=== PATIENT | male | born 1980 | race Caucasian/White ===

== ENCOUNTER 2017-09-18 14:49 | Emergency (ER) | payer SELFPAY ==
[~2017-09-18] VITALS: Ht 182.9 cm; Wt 68.0 kg
[2017-09-18 14:50] VITALS: BP 80/60
--- NOTE | 2017-09-18 15:09 | PHYS DOC ---
Past Medical History Past Medical History: No Pertinent History Past Surgical History: No Surgical History, Other Additional Past Surgical Histo: nasal fracture repair Smoking: Cigarettes Alcohol Use: Occasionally Drug Use: Marijuana Adult General Chief Complaint Chief Complaint: DIZZY/LIGHT HEADED [facility] HPI Patient is a pleasant 36-year-old male with no major medical problems no major surgeries who presents with dizziness began while exerting himself at the gym working out. He was working out strenuously when he began to feel lightheaded and dizzy. He denies any chest pain or abdominal pain or headache or focal neurologic deficits with the symptoms. He sat down and attempt to relax but his breathing was too fast and it causes dizziness to be little bit worse. EMS was dispatched to the scene and because he was still symptomatic they transported here for an evaluation. At this point after receiving 500 mL of fluid via his IV in his left arm he feels markedly better although he's got mild dizziness still. Patient denies any chest pain at this time abdominal pain, focal neurologic deficit, trauma, decreased exercise tolerance or shortness of breath with exertion. He's not had any symptoms like this in the past and he admits that he was not eating well prior to his workup. At this point patient has minimal symptoms My syncope differential includes but not limited to: Neurally mediated vasovagal syncope, situational syncope, cardiac sinus syncope , orthostatic hypertension, medications, psychiatric interventions, neurologic syncope, cardiogenic syncopal B, to include organic heart disease congestive heart failure, cardiac dysrhythmia, seizure disorder, stroke or transient ischemic attack, bradycardia dysrhythmias, tachycardia dysrhythmias, PT, V. fib V. fib, cardiac abnormalities like first degree secondary third-degree AV blocks , prolonged QT, hypertrophic Dex myopathy, severe pulmonic stenosis, pulmonary arterial hypertension, atrial myxomas, aortic stenosis, valvular failure, alcohol consumption, adrenal insufficiency, drug effects from things like antidepressants, antihypertensive agents like beta blockers, vasodilators including calcium channel blockers and nitrates, autonomic insufficiency. Review of Systems Review of Systems Constitutional: Denies fever or chills [] Eyes: Denies change in visual acuity, redness, or eye pain [] HENT: Denies nasal congestion or sore throat [] Respiratory: Denies cough or shortness of breath [] Cardiovascular: No additional information not addressed in HPI [] GI: Denies abdominal vomiting bloody stools or diarrhea patient admits to being very nauseated. : Denies dysuria or hematuria [] Musculoskeletal: Denies back pain or joint pain [] Integument: Denies rash or skin lesions [] Neurologic: Denies headache, focal weakness or sensory changes patient has some dizziness is now resolving. Endocrine: Denies polyuria or polydipsia [] Current Medications Current Medications Current Medications Medications (Trade) Dose Ordered Sig/Nicole Start Time Stop Time Status Last Admin Dose Admin Ondansetron HCl (Zofran) 4 mg 1X ONCE 09/18/17 15:15 09/18/17 15:16 DC 09/18/17 15:21 4 MG Sodium Chloride 1,000 ml @ 1,000 mls/hr 1X ONCE 09/18/17 15:15 09/18/17 16:14 09/18/17 15:21 1,000 MLS/HR Allergies Allergies Allergies Coded Allergies Type Severity Reaction Last Updated Verified No Known Drug Allergies 11/29/14 No Physical Exam Physical Exam Vital signs recorded on the chart within normal limits. Constitutional: Well developed, well nourished, no acute distress, non-toxic appearance. [] HENT: Normocephalic, atraumatic, bilateral external ears normal, dry mucous membranes with no tonsillar hypertrophy, no oral exudates, nose normal. [] Eyes: PERRLA, EOMI, conjunctiva normal, no discharge. No nystagmus with lateral gaze.[] Neck: Normal range of motion, no tenderness, supple, no stridor. [] Cardiovascular:Heart rate regular rhythm, no murmur [] Lungs & Thorax: Bilateral breath sounds clear to auscultation [] Abdomen: Bowel sounds normal, soft, no tenderness, no guarding rebound organomegaly. [] Skin: Warm, dry, no erythema, no rash. [] Extremities: No tenderness, no cyanosis, no clubbing, ROM intact, no edema. [] Neurologic: Alert and oriented X 3, normal motor function, normal sensory function, no focal deficits noted. Patient was also be spontaneously with normal strength. [] Psychologic: Affect normal, judgement normal, mood normal. [] Current Patient Data Vital Signs Vital Signs Date Time Temp Pulse Resp B/P (MAP) Pulse Ox O2 Delivery O2 Flow Rate FiO2 09/18/17 14:50 97.6 80 18 80/60 (67) 96 Room Air 97.6 Lab Values Laboratory Tests Test 09/18/17 15:10 Glucose (Fingerstick) 95 mg/dL (70-99) EKG EKG []EKG timed [address] Abel 09/18/2017 demonstrates heart rate of 65. A P wave there were QRS is noted normal sinus rhythm OR interval is 144 which is normal, QRS interval was 88 which is normal QTC is 392 which is normal patient has no ST segment or T-wave changes consistent with acute coronary ischemia. This normal EKG Radiology/Procedures Radiology/Procedures [] Course & Med Decision Making Course & Med Decision Making Pertinent Labs and Imaging studies reviewed. (See chart for details) []Patient presents with exertional near syncope patient feels markedly better after a liter Of fluids. Patient states it was normal, EKG is normal, patient's neuro exam is normal with no evidence of nystagmus no headache no points of weakness. Bleeding at the bedside upon arrival demonstrates no occult this. Stroke scale of 0 1a. Level of consciousness: 0 = Alert; keenly responsive. 1 = Not alert; but arousable by minor stimulation to obey, answer, or respond. 2 = Not alert; requires repeated stimulation to attend, or is obtunded and requires strong or painful stimulation to make movements (not stereotyped). 3 = Responds only with reflex motor or autonomic effects or totally unresponsive , flaccid, and areflexic. 1b. LOC questions: 0 = Answers both questions correctly. 1 = Answers one question correctly. 2 = Answers neither question correctly. 1c. LOC commands: 0 = Performs both tasks correctly. 1 = Performs one task correctly. 2 = Performs neither task correctly. 2. Best gaze: 0 = Normal. 1 = Partial gaze palsy; gaze is abnormal in one or both eyes, but forced deviation or total gaze paresis is not present. 2 = Forced deviation, or total gaze paresis not overcome by the oculocephalic maneuver. 3. Visual: 0 = No visual loss. 1 = Partial hemianopia. 2 = Complete hemianopia. 3 = Bilateral hemianopia (blind including cortical blindness). 4. Facial palsy: 0 = Normal symmetrical movements. 1 = Minor paralysis (flattened nasolabial fold, asymmetry on smiling). 2 = Partial paralysis (total or near-total paralysis of lower face). 3 = Complete paralysis of one or both sides (absence of facial movement in the upper and lower face). 5. Motor arm: 0 = No drift; limb holds 90 (or 45) degrees for full 10 seconds. 1 = Drift; limb holds 90 (or 45) degrees, but drifts down before full 10 seconds ; does not hit bed or other support. 2 = Some effort against gravity; limb cannot get to or maintain (if cued) 90 ( or 45) degrees, drifts down to bed, but has some effort against gravity. 3 = No effort against gravity; limb falls. 4 = No movement. UN = Amputation or joint fusion, explain: 5a. Left arm 5b. Right arm 6. Motor le = No drift; leg holds 30-degree position for full 5 seconds. 1 = Drift; leg falls by the end of the 5-second period but does not hit bed. 2 = Some effort against gravity; leg falls to bed by 5 seconds, but has some effort against gravity. 3 = No effort against gravity; leg falls to bed immediately. 4 = No movement. UN = Amputation or joint fusion, explain: 6a. Left leg 6b. Right leg 7. Limb ataxia: 0 = Absent. 1 = Present in one limb. 2 = Present in two limbs. UN = Amputation or joint fusion 8. Sensory: 0 = Normal; no sensory loss. 1 = Ajrt-al-uraswjol sensory loss; patient feels pinprick is less sharp or is dull on the affected side; or there is a loss of superficial pain with pinprick , but patient is aware of being touched. 2 = Severe to total sensory loss; patient is not aware of being touched in the face, arm, and leg. 9. Best language: 0 = No aphasia; normal. 1 = Lnmf-kr-tsqtvdms aphasia; some obvious loss of fluency or facility of comprehension, without significant limitation on ideas expressed or form of expression. Reduction of speech and/or comprehension, however, makes conversation about provided materials difficult or impossible. For example, in conversation about provided materials, examiner can identify picture or naming card content from patient's response. 2 = Severe aphasia; all communication is through fragmentary expression; great need for inference, questioning, and guessing by the listener. Range of information that can be exchanged is limited; listener carries burden of communication. Examiner cannot identify materials provided from patient response. 3 = Mute, global aphasia; no usable speech or auditory comprehension. 10. Dysarthria: 0 = Normal. 1 = Ewla-gq-glzlhauh dysarthria; patient slurs at least some words and, at worst , can be understood with some difficulty. 2 = Severe dysarthria; patient's speech is so slurred as to be unintelligible in the absence of or out of proportion to any dysphasia, or is mute/anarthric. UN = Intubated or other physical barrier, explain: 11. Extinction and inattention (formerly neglect): 0 = No abnormality. 1 = Visual, tactile, auditory, spatial, or personal inattention or extinction to bilateral simultaneous stimulation in one of the sensory modalities. 2 = Profound phuong-inattention or extinction to more than one modality; does not recognize own hand or orients to only one side of space. Impression: Near syncope likely dehydration and environmental exposure Dragon Disclaimer Dragon Disclaimer This electronic medical record was generated, in whole or in part, using a voice recognition dictation system. Departure Departure Impression: Primary Impression: Near syncope Additional Impression: Nausea Disposition: 01 HOME, SELF-CARE Condition: IMPROVED Referrals: NO PCP (PCP) Patient Instructions: Nausea, Adult, Near-Syncope Additional Instructions: My discharge plan Follow up: In addition patient is asked to followup with their primary doctor, within a week for followup examination and to address patient's ongoing medical conditions. Because patient does not have a regular medical doctor, a local physician Resource Sheet will be provided to establish care primary care. Please be very careful when using sedating medications to not operate a vehicle when using his medications as they may prevent increased risk for having a neck.. Patient is advised that in the Emergency Department primary complaints are addressed and only in light of known signs and symptoms. Patient should return immediately to the emergency department if new signs and symptoms develop or patient's condition worsens in any way. At time of discharge patient was in stable condition and had verbalized understanding of the discharge instructions. Scripts Ondansetron (ZOFRAN ODT) 4 Mg Tab.rapdis 4 MG PO BID Y for NAUSEA/VOMITING for 5 Days, #10 TAB Prov: GAGE ABEL MD 09/18/17 Problem Qualifiers GAGE ABEL MD Sep 18, 2017 15:09
[2017-09-18] MEDS ORDERED: ONDANSETRON PF 4 MG/2 ML VIAL. IV ONE (15:15)
[2017-09-18] MEDS ORDERED: IV NORMAL SALINE 1000ML BAG 1,000 ML IV ONE (15:15)
[2017-09-18] MEDS ORDERED: ONDA4TAB10 PO (15:38)
--- NOTE | 2017-09-19 06:36 | EKG ---
[facility] [address] [place] [address] Test Date: 2017-09-18 Test Time: 15:18:29 Pat Name: CLAUDIO SAMUEL Department: Room: Gender: M Documentation Designer: : 1980 Requested By: GAGE ABEL Order Number: [id number] Reading MD: Measurements Intervals [place] Rate: 65 P: 39 CT: 144 QRS: 59 QRSD: 88 T: 45 QT: 372 QTc: 392 Interpretive Statements SINUS RHYTHM RI6.01 Unconfirmed report No previous ECG available for comparison
== END 2017-09-18 16:01 | disposition home or self-care (01) ==
LOC: ER 14:49
DX: R55 Syncope and collapse (principal); R11.0 Nausea; F17.210 Nicotine dependence, cigarettes, uncomplicated
CPT/HCPCS: 82962; 93005; 96361; 96374; 99285; J2405; J7030

== ENCOUNTER 2020-01-08 07:52 | Emergency (ER) | payer SELFPAY ==
[~2020-01-08] VITALS: Ht 182.9 cm; Wt 64.4 kg
[~2020-01-08 07:52] MED LIST: ONDA4TAB10 PO
[2020-01-08 07:56] VITALS: BP 123/69
[2020-01-08] MEDS ORDERED: IBUP-1060 PO (08:05)
[2020-01-08] MEDS ORDERED: AMOX1TAB61 PO (08:05)
--- NOTE | 2020-01-08 08:06 | PHYS DOC ---
Past Medical History Past Medical History: No Pertinent History Past Surgical History: No Surgical History, Other Additional Past Surgical Histo: nasal fracture repair Smoking Status: Never Smoker Alcohol Use: None Drug Use: None Adult General Chief Complaint Chief Complaint: ANIMAL BITE HPI HPI Patient is a 39 year old L who presented to ER today for evaluation of a dog bite her head left thumb that happened on Friday morning which is 4 days ago. He said he was playing with his girlfriend's dog, the dog turned around bit his left thumb. The dog was not sick, acting appropriately, vaccination is up-to-date. He cleaned the wound and has been working since. He woke up with morning with worse pain at the bite site, no fever. He was able to move his left thumb with pain. He is not up to date on his vaccination status. All other ROS is negative unless otherwise noted in HPI Review of Systems Review of Systems See above Current Medications Current Medications Current Medications Medications (Trade) Dose Ordered Sig/Nicole Start Time Stop Time Status Last Admin Dose Admin Amoxicillin/ Clavulanate Potassium (Augmentin 875/ 125mg) 1 tab 1X ONCE 01/08/20 08:15 01/08/20 08:16 DC 01/08/20 08:27 1 TAB Diphtheria/ Tetanus/Acell Pertussis (Boostrix) 0.5 ml ONCE ONCE 01/08/20 08:30 01/08/20 08:31 DC 01/08/20 08:28 0.5 ML Ibuprofen (Motrin) 800 mg 1X ONCE 01/08/20 08:15 01/08/20 08:16 DC 01/08/20 08:27 800 MG Allergies Allergies Allergies Coded Allergies Type Severity Reaction Last Updated Verified No Known Drug Allergies 11/29/14 No Physical Exam Physical Exam See above Constitutional: Well developed, well nourished, no acute distress, non-toxic appearance. [] HENT: Normocephalic, atraumatic, bilateral external ears normal, oropharynx moist, no oral exudates, nose normal. [] Eyes: PERRLA, EOMI, conjunctiva normal, no discharge. [] Neck: Normal range of motion, no tenderness, supple, no stridor. [] Cardiovascular:Heart rate regular rhythm, no murmur [] Lungs & Thorax: Bilateral breath sounds clear to auscultation [] Abdomen: Bowel sounds normal, soft, no tenderness, no masses, no pulsatile masses. [] Skin: There is a puncture wound on the medial side of left thumb at the proximal phalanx area, minimal swelling, no erythema spreading to the wrist area. Patient can flex and extend his left thumb without any problem. Back: No tenderness, no CVA tenderness. [] Extremities: No tenderness, no cyanosis, no clubbing, ROM intact, no edema. [] Neurologic: Alert and oriented X 3, normal motor function, normal sensory function, no focal deficits noted. [] Psychologic: Affect normal, judgement normal, mood normal. [] Current Patient Data Vital Signs Vital Signs Date Time Temp Pulse Resp B/P (MAP) Pulse Ox O2 Delivery O2 Flow Rate FiO2 01/08/20 07:56 97.5 86 15 123/69 (87) 99 Room Air 97.5 EKG EKG [] Radiology/Procedures Radiology/Procedures [] Course & Med Decision Making Course & Med Decision Making Pertinent Labs and Imaging studies reviewed. (See chart for details) Patient was given tetanus booster in the ER. He was given his first dose of antibiotic in the ER. Animal control was notified. His girlfriend's dog will be observed. He does not need RABIES VACCINE AT THIS TIME DUE TO LOW RISK OF KRISTY INFECTION. THE DOG IS UP TO DATE ON VACCINATION STATUS. AT THIS TIME, THERE IS NO EVIDENCE OF FLEXOR TENDON TENOSYNOVITIS. PATIENT CAN FLEX AND EXTEND LEFT THUMB, VERY MINIMAL SWELLING, MILD ERYTHEMA. Dragon Disclaimer Dragon Disclaimer This electronic medical record was generated, in whole or in part, using a voice recognition dictation system. Departure Departure Impression: Primary Impression: Dog bite of left thumb Disposition: 01 HOME, SELF-CARE Condition: STABLE Referrals: NO PCP (PCP) follow up with y our doctor in 2 days for reevaluation. Patient Instructions: Animal Bite Additional Instructions: Thank you for visiting our Emergency Department. We appreciate you trusting us with your care. If any additional problems come up don't hesitate to return to visit us. Please follow up with your primary care provider so they can plan additional care if needed and know about the problem that you had. If symptoms worsen come back to the Emergency Department. Any concerning symptoms that start such as chest pain, shortness of air, weakness or numbness on one side of the body, running high fevers or any other concerning symptoms return to the ER. Scripts Ibuprofen (IBUPROFEN) 800 Mg Tablet 800 MG PO PRN Q8HRS PRN for PAIN, #20 TAB Prov: SANDIE ALAN DO 01/08/20 Amoxicillin/Potassium Clav (AUGMENTIN 875-125 TABLET) 1 Each Tablet 1 TAB PO BID for 10 Days, #20 TAB 0 Refills Prov: SANDIE ALAN DO 01/08/20 SANDIE ALAN DO Jan 08, 2020 08:06
[2020-01-08] MEDS ORDERED: AMOXICILLIN/K CLAV 875/125MG TABLET. PO ONE (08:15)
[2020-01-08] MEDS ORDERED: IBUPROFEN 400 MG TABLET. PO ONE (08:15)
[2020-01-08] MEDS ORDERED: DIPHTH,PERTUSS(ACELL),TET TOX 0.5 ML DISP.SYRIN. VAX IM ONE (08:30)
== END 2020-01-08 08:39 | disposition home or self-care (01) ==
LOC: ER 07:52
DX: S61.052A Open bite of left thumb without damage to nail, initial encounter (principal); R60.0 Localized edema; Z98.890 Other specified postprocedural states; W54.0XXA Bitten by dog, initial encounter; Y93.89 Activity, other specified; Y92.89 Other specified places as the place of occurrence of the external cause; Y99.8 Other external cause status
CPT/HCPCS: 90471; 90715; 99283

== ENCOUNTER 2021-06-20 11:22 | Emergency (ER) | payer SELFPAY ==
[~2021-06-20] VITALS: Ht 182.9 cm; Wt 70.0 kg
[~2021-06-20 11:22] MED LIST changes: +AMOX1TAB61 PO; +IBUP-1060 PO
[2021-06-20] MEDS ORDERED: IOHEXOL 300 MG/ML 100ML VIAL. IV ONE (13:45)
[2021-06-20] MEDS ORDERED: CONTRAST GIVEN. MC PRN (14:00)
[2021-06-20 14:13] LABS: CREATININE 1.3 mg/dL (0.7-1.3); GFR 60.8
[2021-06-20] MEDS ORDERED: AMOX1TAB61 PO (15:05)
--- NOTE | 2021-06-20 15:06 | PHYS DOC ---
Past Medical History Past Medical History: No Pertinent History Past Surgical History: Other Additional Past Surgical Histo: Rhinoplasty Smoking Status: Former Smoker Alcohol Use: Occasionally Drug Use: None General Adult EDM: Chief Complaint: FACE PROBLEM HPI: HPI: Patient is a 40 year old male without pertinent past medical history who presents with intermittent left-sided facial swelling. Has some swelling over his maxilla on the left that has been waxing and waning over the past 3 weeks. He has not found any triggering factors. He is not any fevers, chills, redness in that area. No pain in his mouth or oral cavity. No difficulty secretions, oral swelling, stridor, or shortness of breath. He is otherwise been feeling well. He does not have a PCP, has not sought medical care for this yet. Review of Systems: Review of Systems: Constitutional: Denies fever or chills. [] Eyes: Denies change in visual acuity. [] HENT: + Left-sided facial swelling . [] Respiratory: Denies cough or shortness of breath. [] Cardiovascular: Denies chest pain or edema. [] GI: Denies abdominal pain, nausea, vomiting, bloody stools or diarrhea. [] : Denies dysuria. [] Musculoskeletal: Denies back pain or joint pain. [] Integument: Denies rash. [] Neurologic: Denies headache, focal weakness or sensory changes. [] Endocrine: Denies polyuria or polydipsia. [] Lymphatic: Denies swollen glands. [] Psychiatric: Denies depression or anxiety. [] Heart Score: C/O Chest Pain: N/A Risk Factors: Risk Factors: DM, Current or recent (<one month) smoker, HTN, HLP, family history of CAD, obesity. Risk Scores: Score 0 - 3: 2.5% MACE over next 6 weeks - Discharge Home Score 4 - 6: 20.3% MACE over next 6 weeks - Admit for Clinical Observation Score 7 - 10: 72.7% MACE over next 6 weeks - Early Invasive Strategies Family History: Family History: No family history of angioedema Current Medications: Current Medications Medications (Trade) Dose Ordered Sig/Nicole Start Time Stop Time Status Last Admin Dose Admin Info (CONTRAST GIVEN -- Rx MONITORING) 1 each PRN DAILY PRN 06/20/21 14:00 06/22/21 13:59 Iohexol (Omnipaque 300 Mg/ml) 70 ml 1X ONCE 06/20/21 13:45 06/20/21 13:46 DC 06/20/21 13:45 70 ML Allergies: Allergies: Allergies Coded Allergies Type Severity Reaction Last Updated Verified No Known Drug Allergies 11/29/14 No Physical Exam: PE: Constitutional: Well developed, well nourished, no acute distress, non-toxic appearance. [] HENT: Normocephalic, atraumatic, bilateral external ears normal, oropharynx mo ist, no oral exudates, nose normal. [] Eyes: PERRLA, EOMI, conjunctiva normal, no discharge. [] Neck: Normal range of motion, no tenderness, supple, no stridor. [] Cardiovascular:Heart rate regular rhythm, no murmur [] Lungs & Thorax: Bilateral breath sounds clear to auscultation [] Abdomen: Bowel sounds normal, soft, no tenderness, no masses, no pulsatile masses. [] Skin: Warm, dry, no erythema, no rash. [] Back: No tenderness, no CVA tenderness. [] Extremities: No tenderness, no cyanosis, no clubbing, ROM intact, no edema. [] Neurologic: Alert and oriented X 3, normal motor function, normal sensory function, no focal deficits noted. [] Psychologic: Affect normal, judgement normal, mood normal. [] Current Patient Data: Labs: Laboratory Tests Test 06/20/21 13:00 Creatinine 1.3 mg/dL (0.7-1.3) Estimated GFR (Cockcroft-Gault) 60.8 Creatine Kinase 81 U/L (39-308) Laboratory Tests 06/20/21 13:00 Vital Signs: Vital Signs Date Time Temp Pulse Resp B/P (MAP) Pulse Ox O2 Delivery O2 Flow Rate FiO2 06/20/21 11:38 98.1 82 16 137/80 (87) 98 Room Air 98.1 EKG: EKG: [] Radiology/Procedures: Radiology/Procedures: CT Facial bones[] Course & Med Decision Making: Course & Med Decision Making Pertinent Labs and Imaging studies reviewed. (See chart for details) Patient is a 40-year-old male without pertinent past medical history who presents with 3 weeks of waxing and waning left-sided facial swelling. It overlies his maxilla and goes to his left lower eyelid. There is no erythema, and it is not painful or tender. He has had no fevers or chills or infectious symptoms. He has had some bloody nasal drainage from the left nare. No recent trauma. Does report that he broke his nose a number years ago. He had all of his top teeth pulled and has dentures in that area. He is not had any pain or swelling in his mouth to suggest an oral infection. CT facial bones obtained and did not show any discernible abscess. Just edema in the area as described above. Patient does not have any PCP follow-up, so have given him a list of providers to establish with. I will trial him on a short course of antibiotics to see if this improves his symptoms. Will return for worsening symptoms including oral swelling, shortness of breath. Dragon Disclaimer: Rajiv Disclaimer: This electronic medical record was generated, in whole or in part, using a voice recognition dictation system. Departure Departure Impression: Primary Impression: Facial swelling Disposition: HOME / SELF CARE / HOMELESS Condition: STABLE Referrals: NO PCP (PCP) Since you do not have a PCP, please call the number for the [facility] at [phone]. Additional Instructions: There was some swelling in the soft tissues on your face. There is no drainable abscesses found. I would like you to follow-up with a primary care doctor so please call them up to set up an appointment. I will write you a prescription for 7 days of Augmentin. Please take the entire prescription as prescribed. If you have worsening of your swelling, swelling in your mouth, shortness of breath, fevers/chills, or other new/concerning symptoms please return to the emergency department for reevaluation immediately. Scripts Amoxicillin/Potassium Clav (AUGMENTIN 875-125 TABLET) 1 Each Tablet 1 TAB PO BID for 7 Days, #14 TAB 0 Refills Prov: DENZEL RICO MD 06/20/21 DENZEL RICO MD Jun 20, 2021 15:06
--- NOTE | 2021-06-20 15:17 | RAD ---
PQRS Compliance Statement: One or more of the following individualized dose reduction techniques were utilized for this examinat ion: 1. Automated exposure control 2. Adjustment of the mA and/or kV according to patient size 3. Use of iterative reconstruction technique CT MAXILLOFACIAL WITH IV CONTRAST 06/20/2021 2:22 PM Indication: Swelling over the maxilla. Bloody maxillary drainage. COMPARISON: None available. TECHNIQUE: Multiple axial CT images of the maxillofacial structures were obtained after the intraveno us administration of nonionic contrast. Coronal and sagittal reformats are provided. FINDINGS: Osseous orbits are intact. Globes are spherical and contour. No intraconal or extraconal mass is iden tified. There is subcutaneous edema along the inferior left periorbital region extending along the le ft malar soft tissues to involve the left nasolabial crease and upper lip. There is subcutaneous florence a extending along the left nare. No osseous erosion is identified. Chronic appearing minimally displa flako fracture of the right nasal bone. Nasal septum appears predominantly midline. Mild fragmentation of the anterior nasal spine may be chronic. Mild mucosal thickening of the left maxillary sinus. Sinu ses are otherwise intact. Mandibular dentition appear intact. There is no drainable soft tissue absce ss. IMPRESSION: 1. Left facial soft tissue swelling with involvement of the left upper lip, left nare, left nasolabia l fold and left malar soft tissues extending to the inferior margin of the left periorbital space. No drainable abscess. Differential considerations include cellulitis of infectious or inflammatory etio logy. In the absence of recent trauma and history of bloody discharge, short-term follow-up evaluatio n could be of benefit. Fragmentation of the anterior nasal spine may be chronic although early erosiv e changes could have similar appearance. Electronically signed by: Keke Richter MD (06/20/2021 3:15 PM) [id number]
[2021-06-20 15:25] VITALS: BP 119/71
== END 2021-06-20 15:30 | disposition home or self-care (01) ==
LOC: ER 11:22
DX: R22.0 Localized swelling, mass and lump, head (principal); Z87.891 Personal history of nicotine dependence
CPT/HCPCS: 36415; 70487; 82550; 82565; 99285; Q9967

== ENCOUNTER 2021-10-13 14:04 | Emergency (ER) | payer SELFPAY | END 2021-10-13 14:16 | disposition left against medical advice (07) | LOC: ER 14:04 | DX: M79.10 Myalgia, unspecified site (principal); R53.83 Other fatigue; R68.83 Chills (without fever); Z53.21 Procedure and treatment not carried out due to patient leaving prior to being seen by health care provider ==

== ENCOUNTER 2022-01-03 20:29 | Emergency (ER) | payer SELFPAY ==
[~2022-01-03] VITALS: Ht 185.4 cm; Wt 63.6 kg
[~2022-01-03 20:29] MED LIST changes: +CEPH500C PO
[2022-01-03 20:44] VITALS: BP 98/71
--- NOTE | 2022-01-03 21:17 | PHYS DOC ---
Past Medical History Past Medical History: No Pertinent History Additional Past Medical Histor: "VERICOUS VEINS" Past Surgical History: Other Additional Past Surgical Histo: Rhinoplasty Smoking Status: Never Smoker Alcohol Use: None Drug Use: Cocaine, Methamphetamine Social History Narrative: DENIES General Adult EDM: Chief Complaint: TESTICULAR PAIN OR INJURY HPI: HPI: Patient is a 41-year-old male presenting for left inguinal pain. Reports he was here approximately 3 weeks ago for generalized abdominal and testicle pain. Denies any significant trauma or concerning exposure, urinalysis was unremarkable, he was prophylactically treated for gonorrhea and chlamydia with subsequent testing negative, and had ultrasound of scrotum performed that was nonconcerning for any emergent or surgical issues. He has no prior genital abnormalities and reports he has not followed up with primary care physician and/or urologist in outpatient setting as previously advised. Reports dull pain, scrotal edema and left-sided inguinal fullness has been constant since he was last seen at our facility. Reports only known exacerbating factor that increases pain is when he increases abdominal pressure such as bearing down, using the bathroom etc. No issues urinating but does admit he has difficulty maintaining erections due to fullness of left side of groin/pain. He remains sexually active with x1 and significant other with no concern for any infectious etiology Review of Systems: Review of Systems: Fourteen body systems of review of systems have been reviewed. See HPI for pertinent positives and negative responses, other [place] all other systems are negative, non-pertinent or non-contributory Heart Score: C/O Chest Pain: No Risk Factors: Risk Factors: DM, Current or recent (<one month) smoker, HTN, HLP, family history of CAD, obesity. Risk Scores: Score 0 - 3: 2.5% MACE over next 6 weeks - Discharge Home Score 4 - 6: 20.3% MACE over next 6 weeks - Admit for Clinical Observation Score 7 - 10: 72.7% MACE over next 6 weeks - Early Invasive Strategies Allergies: Allergies: Allergies Coded Allergies Type Severity Reaction Last Updated Verified No Known Drug Allergies 11/29/14 No Physical Exam: PE: Constitutional: Well developed, well nourished, no acute distress, non-toxic appearance. Appears fidgety and under the influence of methamphetamine HENT: Normocephalic, atraumatic, bilateral external ears normal, oropharynx moist, no oral exudates, nose normal. Eyes: PERRLA, EOMI, conjunctiva normal, no discharge. Neck: Normal range of motion, no tenderness, supple, no stridor. Cardiovascular: Heart rate tachycardic, sinus rhythm, no murmurs rubs or gallops Lungs & Thorax: Bilateral breath sounds clear to auscultation Abdomen: Bowel sounds normal, soft, no pulsatile masses. Nonsurgical abdomen, no peritoneal signs. Patient does have fullness present to left inguinal region. Formal exam performed at bedside by myself, patient does have gene ralized scrotal swelling without any palpable abnormalities to bilateral testes which are descended, penis circumcised without discharge or other concerning findings, there is fullness to left inguinal canal with digital examination but is reducible Skin: Warm, dry, no erythema, no rash. Back: No tenderness, no CVA tenderness. Extremities: No tenderness, no cyanosis, no clubbing, ROM intact, no edema. Palpable varicose veins present to left inner thigh without any crepitus and/or erythema or concerning infectious signs Neurologic: Alert and oriented X 3, grossly normal motor & sensory function, no focal deficits noted. Psychologic: Anxious affect and mood Current Patient Data: Vital Signs: Vital Signs Date Time Temp Pulse Resp B/P (MAP) Pulse Ox O2 Delivery O2 Flow Rate FiO2 01/03/22 20:44 98.1 108 22 98/71 (80) 99 Room Air 98.1 EKG: EKG: [] Radiology/Procedures: Radiology/Procedures: CT abdomen and pelvis without contrast PQRS statement: CT scans at this facility use dose reduction including either automated exposure control, iterative reconstructions, and /or weight based radiation dosing via mA and kV modification when appropriate to reduce radiation dose to as low as reasonably achievable. HISTORY: Left inguinal pain. Abdomen findings: Lung bases and bones are unremarkable. Liver, gallbladder, spleen, adrenal glands, pancreas, right kidney unremarkable. Left renal lower pole 5 mm nonobstructing calculus. No urinary calculi or hydronephrosis. Appendix is normal. There is no obstruction or inflammatory change in the GI tract. No abdominal fluid. Pelvis findings: No inguinal hernia evident. Prostate calcifications. Pelvic phleboliths. Bladder, rectum and bones are unremarkable. No pelvic fluid. IMPRESSION: No acute process. Appendix is normal. 5 mm nonobstructing left renal calculus. No urinary or bladder calculi or hydronephrosis. Electronically signed by: Leandro Marin MD (01/03/2022 9:35 PM) [facility] [place] Course & Med Decision Making: Course & Med Decision Making ABCs grossly unremarkable. HPI physical exam and comprehensive ER work-up nonconcerning for any emergent or surgical issues. Patient anxious, fidgety and appears under the influence of methamphetamine which is a known issue for him. Cessation advised Patient's genital region unchanged from prior examination [address] imaging unremarkable. Discussed and recommended repeat urinalysis and ultrasound but patient deferred as this was already done and unremarkable. He is aware this might be an acute presentation more concerning pathology and so, strict return precautions were discussed at length with patient. He has not followed up in outpatient setting, I subsequently urged him to follow-up with primary care, vein clinic and urologist Rajiv Disclaimer: Rajiv Disclaimer: This electronic medical record was generated, in whole or in part, using a voice recognition dictation system. Departure Departure Impression: Primary Impression: Bilateral varicoceles Additional Impression: Testicular swelling Disposition: 01 HOME / SELF CARE / HOMELESS Condition: STABLE Referrals: NO PCP (PCP) CHARLIE JONES MD Additional Instructions: As discussed prior to ER departure, your vitals, physical exam and comprehensive ER work-up were nonconcerning for any emergent or surgical issues. CT of your abdomen and pelvis area were nonconcerning. Your testicles were similar in presentation to last examination approximately 3 weeks ago. We reviewed prior urinalysis and ultrasound findings. Given no change in symptoms since last visit, joint decision was made to discharge you home with close primary care follow-up. It is also advised for you to seek outpatient neurology consultation in addition to following up with your pain clinic which you have seen in the past. If any concerning signs or symptoms present prior to outpatient follow-up please do not hesitate to come back for repeat evaluation. It was a pleasure to take care of you and I wish you the best going forward BLANCO VOGT DO Jan 03, 2022 21:17
--- NOTE | 2022-01-03 21:37 | RAD ---
CT abdomen and pelvis without contrast PQRS statement: CT scans at this facility use dose reduction including either automated exposure cont rol, iterative reconstructions, and /or weight based radiation dosing via mA and kV modification when appropriate to reduce radiation dose to as low as reasonably achievable. HISTORY: Left inguinal pain. Abdomen findings: Lung bases and bones are unremarkable. Liver, gallbladder, spleen, adrenal glands, pancreas, right kidney unremarkable. Left renal lower pole 5 mm nonobstructing calculus. No urinary c alculi or hydronephrosis. Appendix is normal. There is no obstruction or inflammatory change in the G I tract. No abdominal fluid. Pelvis findings: No inguinal hernia evident. Prostate calcifications. Pelvic phleboliths. Bladder, re ctum and bones are unremarkable. No pelvic fluid. IMPRESSION: No acute process. Appendix is normal. 5 mm nonobstructing left renal calculus. No urinary or bladder calculi or hydronephrosis. Electronically signed by: Leandro Marin MD (01/03/2022 9:35 PM) [facility]
== END 2022-01-03 22:05 | disposition home or self-care (01) ==
LOC: ER 20:29
DX: I86.1 Scrotal varices (principal); N50.89 Other specified disorders of the male genital organs
CPT/HCPCS: 74176; 99284-25

== ENCOUNTER 2022-03-06 20:14 | Observation (INO) | payer SELFPAY ==
[~2022-03-06] VITALS: Ht 182.9 cm; Wt 63.6 kg
[2022-03-06] MEDS ORDERED: KETOROLAC 30 MG/ML VIAL. IVP ONE (20:30)
[2022-03-06] MEDS ORDERED: IV NORMAL SALINE 1000ML BAG 1,000 ML IV ONE (20:30)
[2022-03-06 20:48] LABS: BASO # 0.1 x10^3/uL (0.0-0.2); BASO % 1 % (0-3); EOS # 0.4 x10^3/uL (0.0-0.7); EOS % 6 % (0-3); HEMATOCRIT 42.5 % (39.0-53.0); HEMOGLOBIN 14.5 g/dL (13.0-17.5); LYMPH # 2.3 x10^3/uL (1.0-4.8); LYMPH % 36 % (24-48); MEAN CORPUSCULAR HEMOGLOBIN 30 pg (25-35); MEAN CORPUSCULAR HGB CONC 34 g/dL (31-37); MEAN CORPUSCULAR VOLUME 88 fL (79-100); MONO # 0.5 x10^3/uL (0.0-1.1); MONO % 8 % (0-9); NEUT # 3.2 x10^3/uL (1.8-7.7); NEUT % 50 % (31-73); PLATELET COUNT 339 x10^3/uL (140-400); RED BLOOD COUNT 4.86 x10^6/uL (4.30-5.70); RED CELL DISTRIBUTION WIDTH 13.9 % (11.5-14.5); WHITE BLOOD COUNT 6.5 x10^3/uL (4.0-11.0)
[2022-03-06 20:58] LABS: CALCIUM 9.1 mg/dL (8.5-10.1); CREATININE 1.2 mg/dL (0.7-1.3); GFR 66.4; POTASSIUM 4.2 mmol/L (3.5-5.1)
[2022-03-06 21:05] LABS: ALBUMIN 3.7 g/dL (3.4-5.0); ALBUMIN/GLOBULIN RATIO 1.1 (1.0-1.7); TOTAL BILIRUBIN 0.3 mg/dL (0.2-1.0)
[2022-03-06] MEDS ORDERED: CONTRAST GIVEN. MC PRN (21:45)
--- NOTE | 2022-03-06 21:48 | RAD ---
CLINICAL HISTORY: Reason: scrotal pain / Spl. Instructions: / History: COMPARISON: None available. TECHNIQUE: Ultrasound images of the scrotum was performed with washburn-scale and color doppler. FINDINGS: The right testis measures 4.1 x 2.1 x 3.2 cm. The left testis measures 3.8 x 1.8 x 2.4 cm. There is no intratesticular abnormality. Testicular vascularity is symmetric and within normal limit s. The epididymis is normal in appearance bilaterally. There is no hydrocele or varicocele. IMPRESSION: Normal appearance of the testicles. No evidence for torsion. Electronically signed by: Harish Flower MD (03/06/2022 9:45 PM) [facility]
[2022-03-06] MEDS ORDERED: IOHEXOL 300 MG/ML 100ML VIAL. IV ONE (22:00)
--- NOTE | 2022-03-06 22:22 | RAD ---
Study: CT abdomen/pelvis with intravenous contrast Indication: Scrotal/groin/pelvic pain. Comparison: 01/03/2022 Technique: Helical CT imaging performed of the abdomen and pelvis after the intravenous administratio n of 75 cc Omnipaque 300 contrast. Sagittal and coronal reformats were obtained. One or more of the following individualized dose reduction techniques were utilized for this examinat ion: 1. Automated exposure control 2. Adjustment of the mA and/or kV according to patient size 3. Use of iterative reconstruction technique. Findings: Partially visualized 5 mm nodular focus within the right middle lobe, image 1 series 2. Minimal basil ar volume loss on the left. Unremarkable visualized mediastinal contents. No newly seen abnormality of the liver again with scattered subcentimeter hypoattenuating foci which are statistically most likely benign. Unremarkable gallbladder, biliary tree, pancreas, spleen and ad renal glands. Unchanged thin 5 mm nonobstructing intrarenal stone at the lower pole the left and a sm all adjacent cystic focus. Additional cystic foci at the upper pole on the left. No hydronephrosis. N ormal bladder wall thickness. Unchanged prostate. Mild constipation. Normal appendix. No pathologic dilatation of small bowel. Unremarkable stomach. Unremarkable major vasculature. No lymphadenopathy. No free fluid or pneumoperitoneum. Unremarkable b vanessa wall soft tissues. No acute or aggressive osseous process. Mild discogenic arthrosis at L5-S1. Impression: 1. No acute abnormality identified throughout the abdomen or pelvis. Redemonstrated nonobstructing 5 mm intrarenal stone at the lower pole of the left kidney. 2. Partially imaged nodular focus at the upper aspect of the right middle lobe measuring 5 mm. Per F leischner guidelines, optional CT follow-up in 12 months if there are risk factors for lung malignanc y. 3. Mild constipation. Electronically signed by: MARIJA BOOTHE MD (03/06/2022 10:20 PM) [facility]
[2022-03-06 22:46] LABS: BARBITURATES NEG (NEG); BENZODIAZEPINES NEG (NEG); CANNABINOIDS POS (NEG); COCAINE POS (NEG); METHADONE NEG (NEG); OPIATES NEG (NEG); PHENCYCLIDINE NEG (NEG)
[2022-03-06 22:49] LABS: BACTERIA,URINE FEW /HPF (0-FEW); RBC,URINE RARE /HPF (0-2); WBC,URINE OCC /HPF (0-4)
[2022-03-06 22:54] LABS: AMPHETAMINE/METHAMPHETAMINE POS (NEG)
--- NOTE | 2022-03-06 23:21 | PHYS DOC ---
Past Medical History Past Medical History: No Pertinent History Additional Past Medical Histor: "VERICOUS VEINS" Past Surgical History: No Surgical History Additional Past Surgical Histo: Rhinoplasty Smoking Status: Current Every Day Smoker Alcohol Use: Occasionally Drug Use: Cocaine, Methamphetamine Social History Narrative: unknown Adult General Chief Complaint Chief Complaint: GROIN PAIN HPI HPI The patient is a 41-year-old male with a history of polysubstance abuse who presents for the fourth time in 4 months for severe, intractable bilateral scrotal and inguinal pain. Today seems to be somewhat worse on the right side t olvera the left but per documentation has previously been worse on the left than the right. Each of the 3 prior times that the patient has been evaluated in the emergency department for this issue, he has been advised that extensive emergency department work-up is unremarkable and that it is of crucial importance that he follow-up with urology in the office, as well as with a primary doctor. Each time he has failed to do so. When asked why he has failed to seek any appropriate subspecialty outpatient follow-up, he tells me it is because he does not have the money to afford any outpatient follow-up. Mr. Delacruz, as above, presents for evaluation of severe scrotal, perineal, inguinal and bilateral thigh pain. Screaming on the ground in the waiting room and clutching at his scrotum. Brought back to a room, continues the same behavior. Appears to be under the influence of one or more substances, though he denies this. Tells me that pain has been constantly present for the entirety of the last 4 months. Denies any specific injury to the area that he can recollect. Does report associated low abdominal discomfort bilaterally. Denies fevers, vomiting, flank pain, midline back pain, dysuria, hematuria, polyuria or oliguria, changes in bowel habits, pain or swelling to arms or legs. Review of Systems Review of Systems A 12 point review of systems was completed and was negative except where noted in HPI above. Current Medications Current Medications Current Medications Medications (Trade) Dose Ordered Sig/Nicole Start Time Stop Time Status Last Admin Dose Admin Info (CONTRAST GIVEN -- Rx MONITORING) 1 each PRN DAILY PRN 03/06/22 21:45 03/08/22 21:44 Iohexol (Omnipaque 300 Mg/ml) 75 ml 1X ONCE 03/06/22 22:00 03/06/22 22:01 DC 03/06/22 22:04 75 ML Ketorolac Tromethamine (Toradol 30mg Vial) 30 mg 1X ONCE 03/06/22 20:30 03/06/22 20:34 DC 03/06/22 20:57 30 MG Lorazepam (Ativan Inj) 1.5 mg 1X ONCE 03/06/22 20:30 03/06/22 20:35 DC 03/06/22 20:58 1.5 MG Sodium Chloride 1,000 ml @ 1,000 mls/hr 1X ONCE 03/06/22 20:30 03/06/22 21:29 DC 03/06/22 20:58 1,000 MLS/HR Allergies Allergies Allergies Coded Allergies Type Severity Reaction Last Updated Verified No Known Drug Allergies 11/29/14 No Physical Exam Physical Exam 41-year-old male appearing nontoxic and in no acute distress. He is agitated and tearful and appears to be under the influence of a psychostimulant. Head is normocephalic and atraumatic. Neck is supple and nontender. Oropharynx is moist. Lungs are clear to auscultation at all stations. There is a normal S1 and S2 without rubs or gallops and capillary refill is appropriate, less than 2 seconds globally. Abdomen is soft, nontender and nondistended. Skin is warm and dry without cyanosis, clubbing or edema. Psychiatrically, the patient demonstrates appropriate mood and affect and is alert. Evaluation of the groin reveals no erythema, warmth, swelling, reproducible tenderness to palpation anywhere, rashes, lesions, inguinal lymphadenopathy, inguinal fullness or other acute findings. BUEs and BLEs are neurovascularly intact distally with strength out of 5, sensation intact light touch in all nerve distributions, radial, DP and PT pulses 2+ equal bilaterally, capillary refill less than 2 seconds, hands and feet warm and well-perfused. No dependent peripheral edema distally. No calf tenderness or swelling bilaterally. Homans test is negative bilaterally. No erythema, warmth or swelling to the arms or legs. No discomfort with ranging of any joint of the arms or legs. Current Patient Data Vital Signs Vital Signs Date Time Temp Pulse Resp B/P (MAP) Pulse Ox O2 Delivery O2 Flow Rate FiO2 03/06/22 20:15 98.3 133 20 151/78 (102) 96 Room Air 98.3 Lab Values Laboratory Tests Test 4/6/22 20:43 03/06/22 22:20 White Blood Count 6.5 x10^3/uL (4.0-11.0) Red Blood Count 4.86 x10^6/uL (4.30-5.70) Hemoglobin 14.5 g/dL (13.0-17.5) Hematocrit 42.5 % (39.0-53.0) Mean Corpuscular Volume 88 fL (79-100) Mean Corpuscular Hemoglobin 30 pg (25-35) Mean Corpuscular Hemoglobin Concent 34 g/dL (31-37) Red Cell Distribution Width 13.9 % (11.5-14.5) Platelet Count 339 x10^3/uL (140-400) Neutrophils (%) (Auto) 50 % (31-73) Lymphocytes (%) (Auto) 36 % (24-48) Monocytes (%) (Auto) 8 % (0-9) Eosinophils (%) (Auto) 6 % (0-3) H Basophils (%) (Auto) 1 % (0-3) Neutrophils # (Auto) 3.2 x10^3/uL (1.8-7.7) Lymphocytes # (Auto) 2.3 x10^3/uL (1.0-4.8) Monocytes # (Auto) 0.5 x10^3/uL (0.0-1.1) Eosinophils # (Auto) 0.4 x10^3/uL (0.0-0.7) Basophils # (Auto) 0.1 x10^3/uL (0.0-0.2) Sodium Level 145 mmol/L (136-145) Potassium Level 4.2 mmol/L (3.5-5.1) Chloride Level 106 mmol/L (98-107) Carbon Dioxide Level 32 mmol/L (21-32) Anion Gap 7 (6-14) Blood Urea Nitrogen 16 mg/dL (8-26) Creatinine 1.2 mg/dL (0.7-1.3) Estimated GFR (Cockcroft-Gault) 66.4 BUN/Creatinine Ratio 13 (6-20) Glucose Level 106 mg/dL (70-99) H Calcium Level 9.1 mg/dL (8.5-10.1) Total Bilirubin 0.3 mg/dL (0.2-1.0) Aspartate Amino Transferase (AST) 18 U/L (15-37) Alanine Aminotransferase (ALT) 30 U/L (16-63) Alkaline Phosphatase 74 U/L (46-116) Total Protein 7.0 g/dL (6.4-8.2) Albumin 3.7 g/dL (3.4-5.0) Albumin/Globulin Ratio 1.1 (1.0-1.7) Urine Collection Type Unknown Urine Color (Auto) Light yellow Urine Turbidity Clear Urine pH (Auto) 6.5 (<5.0-8.0) Urine Specific [place] 1.034 (1.000-1.030) Urine Protein (Auto) Negative mg/dL (Negative) Urine Glucose (Auto)(UA) Negative mg/dL (Negative) Urine Ketones (Auto) Negative mg/dL (Negative) Urine Blood (Auto) Negative (Negative) Urine Nitrite Negative (Negative) Urine Bilirubin (Auto) Negative (Negative) Urine Urobilinogen (Auto) Normal mg/dL (Normal) Urine Leukocyte Esterase (Auto) Negative (Negative) Urine RBC Rare /HPF (0-2) Urine WBC Occ /HPF (0-4) Urine Squamous Epithelial Cells Occ /LPF Urine Bacteria Few /HPF (0-FEW) Urine Mucus Mod /LPF Urine Opiates Screen Neg (NEG) Urine Methadone Screen Neg (NEG) Urine Barbiturates Neg (NEG) Urine Phencyclidine Screen Neg (NEG) Urine Amphetamine/Methamphetamine Pos (NEG) Urine Benzodiazepines Screen Neg (NEG) Urine Cocaine Screen Pos (NEG) Urine Cannabinoids Screen Pos (NEG) Urine Ethyl Alcohol Neg (NEG) Laboratory Tests 03/06/22 20:43 Laboratory Tests 03/06/22 20:43 EKG EKG [] Radiology/Procedures Radiology/Procedures CLINICAL HISTORY: Reason: scrotal pain / Spl. Instructions: / History: COMPARISON: None available. TECHNIQUE: Ultrasound images of the scrotum was performed with washburn-scale and color doppler. FINDINGS: The right testis measures 4.1 x 2.1 x 3.2 cm. The left testis measures 3.8 x 1.8 x 2.4 cm. There is no intratesticular abnormality. Testicular vascularity is symmetric and within normal limits. The epididymis is normal in appearance bilaterally. There is no hydrocele or varicocele. IMPRESSION: Normal appearance of the testicles. No evidence for torsion. Electronically signed by: Harish Brock MD (03/06/2022 9:45 PM) [facility] DICTATED and SIGNED BY: HARISH BROCK MD DATE: 03/06/222141 Study: CT abdomen/pelvis with intravenous contrast Indication: Scrotal/groin/pelvic pain. Comparison: 01/03/2022 Technique: Helical CT imaging performed of the abdomen and pelvis after the intravenous administration of 75 cc Omnipaque 300 contrast. Sagittal and coronal reformats were obtained. One or more of the following individualized dose reduction techniques were utilized for this examination: 1. Automated exposure control 2. Adjustment of the mA and/or kV according to patient size 3. Use of iterative reconstruction technique. Findings: Partially visualized 5 mm nodular focus within the right middle lobe, image 1 series 2. Minimal basilar volume loss on the left. Unremarkable visualized mediastinal contents. No newly seen abnormality of the liver again with scattered subcentimeter hypoattenuating foci which are statistically most likely benign. Unremarkable gallbladder, biliary tree, pancreas, spleen and adrenal glands. Unchanged thin 5 mm nonobstructing intrarenal stone at the lower pole the left and a small adjacent cystic focus. Additional cystic foci at the upper pole on the left. No hydronephrosis. Normal bladder wall thickness. Unchanged prostate. Mild constipation. Normal appendix. No pathologic dilatation of small bowel. Unremarkable stomach. Unremarkable major vasculature. No lymphadenopathy. No free fluid or pneumoperitoneum. Unremarkable body wall soft tissues. No acute or aggressive osseous process. Mild discogenic arthrosis at L5-S1. Impression: 1. No acute abnormality identified throughout the abdomen or pelvis. Redemonstrated nonobstructing 5 mm intrarenal stone at the lower pole of the left kidney. 2. Partially imaged nodular focus at the upper aspect of the right middle lobe measuring 5 mm. Per Fleischner guidelines, optional CT follow-up in 12 months if there are risk factors for lung malignancy. 3. Mild constipation. Electronically signed by: MARIJA BOOTHE MD (03/06/2022 10:20 PM) [facility] DICTATED and SIGNED BY: MARIJA BOOTHE MD DATE: 03/06/222211 Course & Med Decision Making Course & Med Decision Making Large work-up including labs and imaging is as above, remarkable only for cocaine, amphetamine and cannabinoid positivity on UDS. Scrotal and testicular ultrasound and CT scan of the abdomen and pelvis are negative. Patient remains in quite severe discomfort. Discussed with him that as this is his fourth visit in 4 months for the same issue, and that he lacks any ability to follow-up outpatient with the appropriate specialist, that we will admit him for observation to facilitate urology consultation in the morning. Counseled him that urology may not have much to add but that at this point feel we need to do something differently given his lack of access to appropriate outpatient care. He is agreeable for admission. Graciously accepted for observation admission by Dr. Goldsmith. Rajiv Disclaimer Rajiv Disclaimer This electronic medical record was generated, in whole or in part, using a voice recognition dictation system. Departure Departure Impression: Primary Impression: Inguinal pain of both sides Additional Impressions: Scrotal pain Polysubstance abuse Disposition: ADMITTED INPATIENT Condition: STABLE Referrals: NO PCP (PCP) Problem Qualifiers GODWIN PENA MD Mar 06, 2022 23:21
[2022-03-06] MEDS ORDERED: KETOROLAC 15 MG/ML VIAL. IVP PRN (23:30)
[2022-03-06] MEDS ORDERED: ONDANSETRON PF 4 MG/2 ML VIAL. IVP PRN (23:30)
[2022-03-07 05:23] LABS: CALCIUM 8.7 mg/dL (8.5-10.1); CREATININE 0.9 mg/dL (0.7-1.3); GFR 92.5; POTASSIUM 3.8 mmol/L (3.5-5.1)
[2022-03-07 06:42] LABS: BASO # 0.1 x10^3/uL (0.0-0.2); BASO % 1 % (0-3); EOS # 0.3 x10^3/uL (0.0-0.7); EOS % 4 % (0-3); HEMATOCRIT 41.6 % (39.0-53.0); HEMOGLOBIN 13.5 g/dL (13.0-17.5); LYMPH # 2.1 x10^3/uL (1.0-4.8); LYMPH % 31 % (24-48); MEAN CORPUSCULAR HEMOGLOBIN 29 pg (25-35); MEAN CORPUSCULAR HGB CONC 33 g/dL (31-37); MEAN CORPUSCULAR VOLUME 89 fL (79-100); MONO # 0.4 x10^3/uL (0.0-1.1); MONO % 7 % (0-9); NEUT # 3.8 x10^3/uL (1.8-7.7); NEUT % 57 % (31-73); PLATELET COUNT 305 x10^3/uL (140-400); RED BLOOD COUNT 4.69 x10^6/uL (4.30-5.70); WHITE BLOOD COUNT 6.6 x10^3/uL (4.0-11.0)
[2022-03-07 07:00] VITALS: BP 121/79
[2022-03-07 11:00] VITALS: BP 118/82
--- NOTE | 2022-03-07 12:13 | SSS ---
DATE OF SERVICE: 03/07/2022 ADMIT DATE: 03/06/2022 SHORT STAY SUMMARY CHIEF COMPLAINT: Groin pain. HISTORY OF PRESENT ILLNESS: The patient is a pleasant 41-year-old male who has been suffering from groin pain for quite some time. He states he has been to the ER several times. He feels like they do not believe him and they think he is just a drug addict. Indeed, his drug screen is positive for cocaine, methamphetamine and marijuana. He was given some doxycycline during one of his visits, but he states that has not resolved his pain. I discussed the case with ER physician. We are going to admit the patient for observation. We are going to consult with Urology for a second opinion. PAST MEDICAL HISTORY: Drug abuse, varicose veins, tobacco abuse, cocaine abuse, methamphetamine abuse, marijuana abuse. ALLERGIES: None. FAMILY HISTORY: Diabetes. SOCIAL HISTORY: Drinks, smokes and take drugs. MEDICATIONS: Reviewed, please refer to the MRAD. REVIEW OF SYSTEMS: GENERAL: No history of weight change, weakness or fevers. SKIN: No bruising, hair changes or rashes. EYES: No blurred, double or loss of vision. NOSE AND THROAT: No history of nosebleeds, hoarseness or sore throat. HEART: No history of palpitations, chest pain or shortness of breath on exertion. LUNGS: Denies cough, hemoptysis, wheezing or shortness of breath. GASTROINTESTINAL: Denies changes in appetite, nausea, vomiting, diarrhea or constipation. GENITOURINARY: He complains of some scrotal pain. NEUROLOGIC: Denies history of numbness, tingling, tremor or weakness. PSYCHIATRIC: No history of panic, anxiety or depression. ENDOCRINE: No history of heat or cold intolerance, polyuria or polydipsia. EXTREMITIES: Denies muscle weakness, joint pain, pain on walking or stiffness. PHYSICAL EXAMINATION: VITALS: Within normal limits and are stable. GENERAL: No apparent distress. Alert and oriented. HEENT: Normal cephalic atraumatic, external auditory canals are patent. EYES: Extraocular muscles are intact, pupils are equally round and reactive to light and accommodation. MUSCULOSKELETAL: Well developed, well nourished, good range of motion. ENDOCRINE: No thyromegaly was palpated. LYMPHATICS: No cervical chain or axillary nodes were noted. HEMATOPOIETIC: No bruising. NECK: Supple, no JVD, no thyromegaly was noted. LUNGS: Clear to auscultation in all lung more without rhonchi or wheezing. HEART: RRR, S1, S2 present. Peripheral pulses intact, no obvious murmurs were noted. ABDOMEN: Soft, nontender. Positive bowel sounds no organomegaly, normal bowel sounds. EXTREMITIES: Without any cyanosis, clubbing, or edema. Pedal pulses intact, Homans sign is negative. NEUROLOGIC: Normal speech, normal tone. A and O x 3, moves all extremities, no obvious focal deficits. PSYCHIATRIC: Normal affect, normal mood. Stable. SKIN: No ulcerations or rashes, good skin turgor, no jaundice. VASCULAR: Good capillary refill, neurovascular bundle appears to be intact. LABORATORY DATA: White count is normal at 6.5. Electrolytes are normal. Drug screen is positive for amphetamines, cocaine and marijuana. Urinalysis negative. ASSESSMENT AND PLAN: Intractable scrotal pain of undetermined etiology in a middle-aged male who uses methamphetamine, cocaine, marijuana, cigarettes and alcohol. The patient has been admitted. We were using p.r.n. Toradol. We have consulted Urology. I do not see any structural problems by my eye. I do not think there is much we are going to be able to offer him, but again, we are getting a second opinion from Urology. If nothing to be done, we will discharge this afternoon. DISPOSITION: Home. ACTIVITY: As tolerated. DIET: Low sodium. MEDICATIONS: Please see the MRAD. TOTAL TIME: [address]: Ziyad TID: [id number]
--- NOTE | 2022-03-07 13:21 | PDOC2 ---
UROLOGY CONSULT DOS: DATE: 03/07/22 TIME: 13:15 Reason for Consult: Bilateral testicle pain 41M admitted to the hospital for bilateral testicle pain and upper leg pain. Patient states this has been ongoing since December. He has been seen several times in the emergency department but unable to follow-up with urology due to lack of insurance. Patient reports that he was having some swelling and bilateral testicle pain that was uncontrolled at home. He denies any injury or trauma. Denies dysuria, fevers, flank pain, gross hematuria. He had a CT scan of his abdomen and pelvis showing a nonobstructing left 5 mm renal stone as well as a normal testicular ultrasound, no signs of torsion. UA was negative for infection. He states he has had several rounds of gonorrhea and chlamydia treatment although he does not feel he is at risk as he is in a monogamous relationship. He has never had any procedures. Denies chronic medical history of previous surgeries. Nothing seems to make the pain any better or worse although it is controlled at this time. ROS Constitutional: Denies fevers, chills, weakness Cardiovascular: Denies chest pain, palpitations Respiratory: Denies shortness of breath, wheezing, dyspnea on exertion GI: Denies abdominal pain, nausea, vomiting : Denies dysuria, frequency, urgency, hematuria, urinary retention, flank pain reports testicular pain and swelling, denies rash Skin: Denies rash, bruising Musculoskeletal: Denies extremity pain, extremity edema Psychiatric: Denies stress, anxiety Past Surgical History: No pertinent history Current Medications Current Medications Sodium Chloride 1,000 ml @ 1,000 mls/hr 1X ONCE IV Last administered on 03/06/22at 20:58; Start 03/06/22 at 20:30; Stop 03/06/22 at 21:29; Status DC Ketorolac Tromethamine (Toradol 30mg Vial) 30 mg 1X ONCE IVP Last administered on 03/06/22at 20:57; Start 03/06/22 at 20:30; Stop 03/06/22 at 20:34; Status DC Lorazepam (Ativan Inj) 1.5 mg 1X ONCE IVP Last administered on 03/06/22at 20:58; Start 03/06/22 at 20:30; Stop 03/06/22 at 20:35; Status DC Iohexol (Omnipaque 300 Mg/ml) 75 ml 1X ONCE IV Last administered on 03/06/22at 22:04; Start 03/06/22 at 22:00; Stop 03/06/22 at 22:01; Status DC Info (CONTRAST GIVEN -- Rx MONITORING) 1 each PRN DAILY PRN MC SEE COMMENTS; Start 03/06/22 at 21:45; Stop 03/08/22 at 21:44 Ondansetron HCl (Zofran) 4 mg PRN Q8HRS PRN IVP NAUSEA/VOMITING 1ST CHOICE; Start 03/06/22 at 23:30; Stop 03/07/22 at 23:29 Ketorolac Tromethamine (Toradol 15mg Vial) 15 mg PRN Q6HRS PRN IVP MODERATE PAIN 4-6; Start 03/06/22 at 23:30; Stop 03/11/22 at 23:29 Active Scripts Active Keflex (Cephalexin) 500 Mg Capsule 1 Cap PO TID 7 Days Augmentin 875-125 Tablet (Amoxicillin/Potassium Clav) 1 Each Tablet 1 Tab PO BID 7 Days Ibuprofen 800 Mg Tablet 800 Mg PO PRN Q8HRS PRN Augmentin 875-125 Tablet (Amoxicillin/Potassium Clav) 1 Each Tablet 1 Tab PO BID 10 Days Zofran Odt (Ondansetron) 4 Mg Tab.rapdis 4 Mg PO BID PRN 5 Days Reported No Known Medications Prior To Admisstion (Info) Each 1 Each MC Allergies: Coded Allergies: No Known Drug Allergies (Unverified , 11/29/14) Physical Examination GENERAL: awake, alert, oriented SKIN: warm, dry RESPIRATORY: Aerating well, symmetrical expansion GI: Soft, nontender, no guarding, no rebound : Normal anatomy, no lesions, no CVA tenderness, no testicular pain or masses, no varicoceles or hydroceles felt on exam, no penile lesions or discharge, circumcised MUSCULOSKELETAL: Moves all extremities, no edema NEURO: No gross abnormalities PSYCHIATRIC: Normal mood, normal affect, pleasant Rectum: Nurse present, very mild prostatic tenderness, 30+ gram prostate, no masses or lobules DOES THIS PATIENT HAVE URINARY: No VITALS Vital Signs Date Time Temp Pulse Resp B/P (MAP) Pulse Ox O2 Delivery O2 Flow Rate FiO2 03/07/22 11:00 97.8 103 20 118/82 (94) 97 Room Air 97.8 Labs Laboratory Tests Test 03/06/22 20:43 03/06/22 22:20 03/07/22 03:10 White Blood Count 6.5 x10^3/uL (4.0-11.0) 6.6 x10^3/uL (4.0-11.0) Red Blood Count 4.86 x10^6/uL (4.30-5.70) 4.69 x10^6/uL (4.30-5.70) Hemoglobin 14.5 g/dL (13.0-17.5) 13.5 g/dL (13.0-17.5) Hematocrit 42.5 % (39.0-53.0) 41.6 % (39.0-53.0) Mean Corpuscular Volume 88 fL (79-100) 89 fL (79-100) Mean Corpuscular Hemoglobin 30 pg (25-35) 29 pg (25-35) Mean Corpuscular Hemoglobin Concent 34 g/dL (31-37) 33 g/dL (31-37) Red Cell Distribution Width 13.9 % (11.5-14.5) 14.0 % (11.5-14.5) Platelet Count 339 x10^3/uL (140-400) 305 x10^3/uL (140-400) Neutrophils (%) (Auto) 50 % (31-73) 57 % (31-73) Lymphocytes (%) (Auto) 36 % (24-48) 31 % (24-48) Monocytes (%) (Auto) 8 % (0-9) 7 % (0-9) Eosinophils (%) (Auto) 6 % (0-3) 4 % (0-3) Basophils (%) (Auto) 1 % (0-3) 1 % (0-3) Neutrophils # (Auto) 3.2 x10^3/uL (1.8-7.7) 3.8 x10^3/uL (1.8-7.7) Lymphocytes # (Auto) 2.3 x10^3/uL (1.0-4.8) 2.1 x10^3/uL (1.0-4.8) Monocytes # (Auto) 0.5 x10^3/uL (0.0-1.1) 0.4 x10^3/uL (0.0-1.1) Eosinophils # (Auto) 0.4 x10^3/uL (0.0-0.7) 0.3 x10^3/uL (0.0-0.7) Basophils # (Auto) 0.1 x10^3/uL (0.0-0.2) 0.1 x10^3/uL (0.0-0.2) Sodium Level 145 mmol/L (136-145) 143 mmol/L (136-145) Potassium Level 4.2 mmol/L (3.5-5.1) 3.8 mmol/L (3.5-5.1) Chloride Level 106 mmol/L (98-107) 108 mmol/L (98-107) Carbon Dioxide Level 32 mmol/L (21-32) 28 mmol/L (21-32) Anion Gap 7 (6-14) 7 (6-14) Blood Urea Nitrogen 16 mg/dL (8-26) 13 mg/dL (8-26) Creatinine 1.2 mg/dL (0.7-1.3) 0.9 mg/dL (0.7-1.3) Estimated GFR (Cockcroft-Gault) 66.4 92.5 BUN/Creatinine Ratio 13 (6-20) Glucose Level 106 mg/dL (70-99) 103 mg/dL (70-99) Calcium Level 9.1 mg/dL (8.5-10.1) 8.7 mg/dL (8.5-10.1) Total Bilirubin 0.3 mg/dL (0.2-1.0) Aspartate Amino Transf (AST/SGOT) 18 U/L (15-37) Alanine Aminotransferase (ALT/SGPT) 30 U/L (16-63) Alkaline Phosphatase 74 U/L (46-116) Total Protein 7.0 g/dL (6.4-8.2) Albumin 3.7 g/dL (3.4-5.0) Albumin/Globulin Ratio 1.1 (1.0-1.7) Urine Collection Type Unknown Urine Color (Auto) Light yellow Urine Turbidity Clear Urine pH (Auto) 6.5 (<5.0-8.0) Urine Specific [place] 1.034 (1.000-1.030) Urine Protein (Auto) Negative mg/dL (Negative) Urine Glucose (Auto)(UA) Negative mg/dL (Negative) Urine Ketones (Auto) Negative mg/dL (Negative) Urine Blood (Auto) Negative (Negative) Urine Nitrite Negative (Negative) Urine Bilirubin (Auto) Negative (Negative) Urine Urobilinogen (Auto) Normal mg/dL (Normal) Urine Leukocyte Esterase (Auto) Negative (Negative) Urine RBC Rare /HPF (0-2) Urine WBC Occ /HPF (0-4) Urine Squamous Epithelial Cells Occ /LPF Urine Bacteria Few /HPF (0-FEW) Urine Mucus Mod /LPF Urine Opiates Screen Neg (NEG) Urine Methadone Screen Neg (NEG) Urine Barbiturates Neg (NEG) Urine Phencyclidine Screen Neg (NEG) Urine Amphetamine/Methamphetamine Pos (NEG) Urine Benzodiazepines Screen Neg (NEG) Urine Cocaine Screen Pos (NEG) Urine Cannabinoids Screen Pos (NEG) Urine Ethyl Alcohol Neg (NEG) Laboratory Tests Test 03/06/22 20:43 03/06/22 22:20 03/07/22 03:10 White Blood Count 6.5 x10^3/uL (4.0-11.0) 6.6 x10^3/uL (4.0-11.0) Red Blood Count 4.86 x10^6/uL (4.30-5.70) 4.69 x10^6/uL (4.30-5.70) Hemoglobin 14.5 g/dL (13.0-17.5) 13.5 g/dL (13.0-17.5) Hematocrit 42.5 % (39.0-53.0) 41.6 % (39.0-53.0) Mean Corpuscular Volume 88 fL (79-100) 89 fL (79-100) Mean Corpuscular Hemoglobin 30 pg (25-35) 29 pg (25-35) Mean Corpuscular Hemoglobin Concent 34 g/dL (31-37) 33 g/dL (31-37) Red Cell Distribution Width 13.9 % (11.5-14.5) 14.0 % (11.5-14.5) Platelet Count 339 x10^3/uL (140-400) 305 x10^3/uL (140-400) Neutrophils (%) (Auto) 50 % (31-73) 57 % (31-73) Lymphocytes (%) (Auto) 36 % (24-48) 31 % (24-48) Monocytes (%) (Auto) 8 % (0-9) 7 % (0-9) Eosinophils (%) (Auto) 6 % (0-3) 4 % (0-3) Basophils (%) (Auto) 1 % (0-3) 1 % (0-3) Neutrophils # (Auto) 3.2 x10^3/uL (1.8-7.7) 3.8 x10^3/uL (1.8-7.7) Lymphocytes # (Auto) 2.3 x10^3/uL (1.0-4.8) 2.1 x10^3/uL (1.0-4.8) Monocytes # (Auto) 0.5 x10^3/uL (0.0-1.1) 0.4 x10^3/uL (0.0-1.1) Eosinophils # (Auto) 0.4 x10^3/uL (0.0-0.7) 0.3 x10^3/uL (0.0-0.7) Basophils # (Auto) 0.1 x10^3/uL (0.0-0.2) 0.1 x10^3/uL (0.0-0.2) Sodium Level 145 mmol/L (136-145) 143 mmol/L (136-145) Potassium Level 4.2 mmol/L (3.5-5.1) 3.8 mmol/L (3.5-5.1) Chloride Level 106 mmol/L (98-107) 108 mmol/L (98-107) Carbon Dioxide Level 32 mmol/L (21-32) 28 mmol/L (21-32) Anion Gap 7 (6-14) 7 (6-14) Blood Urea Nitrogen 16 mg/dL (8-26) 13 mg/dL (8-26) Creatinine 1.2 mg/dL (0.7-1.3) 0.9 mg/dL (0.7-1.3) Estimated GFR (Cockcroft-Gault) 66.4 92.5 BUN/Creatinine Ratio 13 (6-20) Glucose Level 106 mg/dL (70-99) 103 mg/dL (70-99) Calcium Level 9.1 mg/dL (8.5-10.1) 8.7 mg/dL (8.5-10.1) Total Bilirubin 0.3 mg/dL (0.2-1.0) Aspartate Amino Transf (AST/SGOT) 18 U/L (15-37) Alanine Aminotransferase (ALT/SGPT) 30 U/L (16-63) Alkaline Phosphatase 74 U/L (46-116) Total Protein 7.0 g/dL (6.4-8.2) Albumin 3.7 g/dL (3.4-5.0) Albumin/Globulin Ratio 1.1 (1.0-1.7) Urine Collection Type Unknown Urine Color (Auto) Light yellow Urine Turbidity Clear Urine pH (Auto) 6.5 (<5.0-8.0) Urine Specific [place] 1.034 (1.000-1.030) Urine Protein (Auto) Negative mg/dL (Negative) Urine Glucose (Auto)(UA) Negative mg/dL (Negative) Urine Ketones (Auto) Negative mg/dL (Negative) Urine Blood (Auto) Negative (Negative) Urine Nitrite Negative (Negative) Urine Bilirubin (Auto) Negative (Negative) Urine Urobilinogen (Auto) Normal mg/dL (Normal) Urine Leukocyte Esterase (Auto) Negative (Negative) Urine RBC Rare /HPF (0-2) Urine WBC Occ /HPF (0-4) Urine Squamous Epithelial Cells Occ /LPF Urine Bacteria Few /HPF (0-FEW) Urine Mucus Mod /LPF Urine Opiates Screen Neg (NEG) Urine Methadone Screen Neg (NEG) Urine Barbiturates Neg (NEG) Urine Phencyclidine Screen Neg (NEG) Urine Amphetamine/Methamphetamine Pos (NEG) Urine Benzodiazepines Screen Neg (NEG) Urine Cocaine Screen Pos (NEG) Urine Cannabinoids Screen Pos (NEG) Urine Ethyl Alcohol Neg (NEG) Assessment/Plan --Scrotal pain, testicular pain This appears to be acute on chronic in nature. Nothing seems to make the pain any better or worse. He has reassuring CT imaging as well as testicular ultrasound with no signs of torsion. No recent trauma. He is urinating without difficulty. UA without infection. Labs today are reassuring. Patient has a virtually normal rectal exam today, very minimal prostatic tenderness on exam. Due to this being an ongoing issue, will treat with 1 month worth of Bactrim DS twice daily to cover for any prostatitis that could be causing referred testicle pain. He does not have any back pain on exam and denies any recent injury. Pain may be referred from his upper legs as he has chronic pain there as well. No emergent interventions during this hospitalization. Will trial 1 month round of antibiotics and have him follow-up in the clinic. --Nonobstructing 5 mm left renal calculi Encourage patient to follow-up in the clinic as he is at risk for making more stones. He is awaiting insurance but plans to follow-up on an outpatient basis when he actually has insurance. He may be a candidate for shockwave lithotripsy in the near future. Please call with urology concerns ROD THOMAS Mar 07, 2022 13:21
--- NOTE | 2022-03-07 15:29 | NUR ---
Discharge Note: [facility] Discharge instructions and discharge home medications reviewed with Patient and a copy given. All questions have been answered and understanding verbalized. The following instructions and handouts were given: follow up instructions Discontinued lines and drains: 20 guage left ac, tip intact. patient tolerated well. Patient discharged to home with self care via self.
[2022-03-07] MEDS ORDERED: SMZ/TMP 800/160MG TABLET. PO SCH (21:00)
== END 2022-03-07 15:00 | disposition home or self-care (01) ==
LOC: ER 20:14 → 2 NORTH 23:09 → ER 03-07 02:05
PROVIDERS: ADMIT Internal Medicine; ATTEND Internal Medicine
DX: N50.82 Scrotal pain (principal); F15.90 Other stimulant use, unspecified, uncomplicated; G89.29 Other chronic pain; R10.9 Unspecified abdominal pain; N50.811 Right testicular pain; N50.812 Left testicular pain; F14.10 Cocaine abuse, uncomplicated; F12.10 Cannabis abuse, uncomplicated; F17.210 Nicotine dependence, cigarettes, uncomplicated; N20.0 Calculus of kidney; K59.00 Constipation, unspecified; Z79.899 Other long term (current) drug therapy; Z98.890 Other specified postprocedural states
CPT/HCPCS: 36415; 74177; 76870; 80048; 80053; 80307; 81001; 85025; 87491; 87591; 96361; 96374; 96375; 99285; G0378; J1885; J2060; J7030; Q9967; G0379